=== PATIENT | female | born 1985 | race Caucasian/White ===

== ENCOUNTER 2016-06-12 14:48 | Emergency (ER) | payer BC ==
[~2016-06-12] VITALS: Ht 162.6 cm; Wt 59.0 kg
[2016-06-12 15:00] VITALS: BP 124/75
[2016-06-12] MEDS ORDERED: THROMBIN 5,000 UNIT NASAL SPRAY BOTTLE. ONE (15:03)
--- NOTE | 2016-06-12 15:27 | ED.ADGEN ---
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 She with 2 x 1 cm skin avulsion with active bleeding. No subcutaneous tissues exposed. Tetanus is greater than 5 years. No other symptoms or complaints. Review of Systems Review of Systems ROS as per HPI Current Medications Current Medications Current Medications Medications (Trade) Dose Ordered Sig/Jia Start Time Stop Time Status Last Admin Dose Admin Lidocaine/ Epinephrine (Let Topical) 3 ml 1X ONCE 06/12/16 15:45 06/12/16 15:46 DC Tetanus/ Diphtheria Toxoids Adsorbed (Tenivac Vial) 0.5 ml ONCE ONCE 06/12/16 15:45 06/12/16 15:46 DC Thrombin (Thrombin-Jmi) 1 spray 1X ONCE 06/12/16 15:45 06/12/16 15:46 DC Allergies Allergies Allergies Coded Allergies Type Severity Reaction Last Updated Verified No Known Drug Allergies 06/12/16 No Physical Exam Physical Exam Constitutional: Well developed, well nourished, no acute distress, non-toxic appearance. Extremities: Left index finger, 1 x 2 cm deep skin avulsion with active bleeding. Current Patient Data Vital Signs Vital Signs Date Time Temp Pulse Resp B/P Pulse Ox O2 Delivery O2 Flow Rate FiO2 06/12/16 15:00 99.2 85 18 98 Room Air EKG EKG [] Radiology/Procedures Radiology/Procedures [] Impressions: Left index finger skin avulsion Course & Med Decision Making Course & Med Decision Making Pertinent Labs and Imaging studies reviewed. (See chart for details) [LET and ThrombiGel applied for bleeding control. Tetanus updated. Typical wound control. ] Final Impression Final Impression [1. Left index laceration] Problems: Dragon Disclaimer Dragon Disclaimer This electronic medical record was generated, in whole or in part, using a voice recognition dictation system. KELLEN HERRERA DO Jun 12, 2016 15:27
[2016-06-12] MEDS: LIDOCAINE/EPI/TETRACAINE TOPICAL GEL 3 ML. TP ONE (15:53)
[2016-06-12] MEDS: THROMBIN 5,000 UNIT NASAL SPRAY BOTTLE. NS ONE (15:53)
[2016-06-12] MEDS: TETANUS AND DIPHTHERIA TOX/PF 0.5 ML VIAL. VAX IM ONE (15:54)
== END 2016-06-12 16:18 | disposition home or self-care (01) ==
LOC: ER 14:48
DX: S61.211A Laceration without foreign body of left index finger without damage to nail, initial encounter (principal); X58.XXXA Exposure to other specified factors, initial encounter; Y93.89 Activity, other specified; Y92.89 Other specified places as the place of occurrence of the external cause; Y99.8 Other external cause status
CPT/HCPCS: 29130; 90471; 90714; 99283-25